=== PATIENT | male | born 1955 | race Caucasian/White ===

== ENCOUNTER 2021-03-16 13:44 | Outpatient (CLI) | payer MEDICARE, SELFPAY ==
--- NOTE | 2021-03-16 13:54 | XRR_ITS ---
PROCEDURE INFORMATION: Exam: XR Chest Exam date and time: 03/16/2021 1:54 PM Age: 65 years old Clinical indication: Wheezing TECHNIQUE: Imaging protocol: XR of the chest. Views: 2 views. COMPARISON: No relevant prior studies available. FINDINGS: Lungs: Unremarkable. No consolidation. Pleural spaces: Unremarkable. No pleural effusion. No pneumothorax. Heart/Mediastinum: Unremarkable. No cardiomegaly. Bones/joints: Unremarkable. XR/XR chest 2V* [id number] IMPRESSION: No acute findings.
== END 2021-03-16 13:45 | disposition home or self-care (01) ==
PROVIDERS: Visit Provider Clinical Nurse Specialist Adult Health
DX: R06.2 Wheezing (principal)
CPT/HCPCS: 71046

== ENCOUNTER → 2021-05-28 10:36 | Outpatient (BNVA) | payer MEDICARE, SELFPAY | PROVIDERS: Visit Provider Clinical Nurse Specialist Adult Health | DX: Z01.818 Encounter for other preprocedural examination (principal); Z20.822 Contact with and (suspected) exposure to COVID-19 | CPT/HCPCS: 87635 ==

== ENCOUNTER 2021-06-03 10:21 | Outpatient (CLI) | payer MEDICARE, SELFPAY ==
--- NOTE | 2021-06-03 13:27 | PFTS_ITS ---
Date of Study:06/03/21 Date of Dictation:01/2022 MECHANICS: Postbronchodilator forced vital capacity (FVC) is normal. Postbronchodilator forced expiratory volume in one second (FEV1) is normal FEV1/FVC is reduced. There is significant response to bronchodilators. FLOW VOLUME LOOP: Sloping of expiratory limb suggestive of airway obstruction. LUNG VOLUMES: Total lung capacity (TLC) is normal. Residual volume (RV) is increased suggestive of moderate air trapping . DIFFUSING CAPACITY FOR CARBON MONOXIDE: Normal . INTERPRETATION: The postbronchodilator spirometry is consistent with mild obstruction.? There is significant response to bronchodilators.? Lung volumes also suggestive of moderate air trapping.? Gas transfer is normal.? Constellation of findings suggestive of mild obstructive airway disease with normal gas transfer likely asthma. Correlate clinically. MTDD
== END 2021-06-03 10:22 | disposition home or self-care (01) ==
LOC: RT 10:22
PROVIDERS: Visit Provider Clinical Nurse Specialist Adult Health
DX: J42 Unspecified chronic bronchitis (principal)
CPT/HCPCS: 94060; 94726; 94729; J7611

== ENCOUNTER 2022-09-06 12:07 | Outpatient (CLI) | payer MEDICARE, SELFPAY ==
--- NOTE | 2022-09-06 12:22 | XR_ITS ---
WS: [id number] XR hip LT 2-3V wo/w pel* [id number] REASON FOR EXAM: left hip pain FINDINGS: No fracture or focal bone lesion. Severe narrowing of the the joint space, near [id number], with significant subchondral sclerosis an d osteophytosis of the acetabulum and the femoral head. Probable loose body within the joint capsule. XR/XR hip LT 2-3V wo/w pel* [id number] IMPRESSION: Severe osteoarthritis of the left hip as above.
== END 2022-09-06 12:08 | disposition home or self-care (01) ==
PROVIDERS: PCP Clinical Nurse Specialist Adult Health; Visit Provider Clinical Nurse Specialist Adult Health
DX: M16.12 Unilateral primary osteoarthritis, left hip (principal)
CPT/HCPCS: 73502

== ENCOUNTER → 2023-06-23 10:21 | Outpatient (BNVA) | payer MEDICARE, SELFPAY | PROVIDERS: PCP Clinical Nurse Specialist Adult Health; Visit Provider Clinical Nurse Specialist Adult Health | DX: I10 Essential (primary) hypertension (principal) | CPT/HCPCS: 80053; 80061; 83036; 85025 ==

== ENCOUNTER → 2023-08-25 10:25 | Outpatient (BNVA) | payer MEDICARE, SELFPAY | PROVIDERS: PCP Clinical Nurse Specialist Adult Health; Referring Provider Clinical Nurse Specialist Adult Health; Visit Provider Student in an Organized Health Care Education/Training Program | DX: M16.12 Unilateral primary osteoarthritis, left hip (principal) | CPT/HCPCS: 73502; 99204 ==

== ENCOUNTER 2023-09-13 12:30 | Outpatient (CLI) | payer MEDICARE, SELFPAY ==
--- NOTE | 2023-09-13 12:30 | CT_ITS ---
WS: [id number] CT LEFT hip, noncontrast HISTORY: LEFT TOTAL HIP ARTHROPLASTY WITH CAMRON TECHNIQUE: Protocol for CAMRON total knee replacement has been obtained. This includes axial imaging th rough the Pelvis and knees. DLP: 894.53 mGy COMPARISON: Radiograph 08/25/2023 Pelvis: RIGHT hip arthroplasty. Severe joint space narrowing with sclerosis and osteophytosis at the LEFT hip. No bony destruction. Bilateral knees. No significant joint space narrowing. No bone destruction. CT/CT hip LT [facility] [id number] IMPRESSION: CT imaging provided for CAMRON robotic LEFT hip replacement.
== END 2023-09-13 12:31 | disposition home or self-care (01) ==
LOC: RAD 12:30
PROVIDERS: PCP Clinical Nurse Specialist Adult Health; Visit Provider Student in an Organized Health Care Education/Training Program
DX: M16.12 Unilateral primary osteoarthritis, left hip (principal); M25.852 Other specified joint disorders, left hip; M25.752 Osteophyte, left hip; Z98.890 Other specified postprocedural states
CPT/HCPCS: 73700; 80053; 81003; 85025; 93005

== ENCOUNTER 2023-09-26 17:02 | Observation (INO) | payer MEDICARE, SELFPAY ==
[2023-09-26] VITALS (14 sets, daily range): BP systolic 108–164; BP diastolic 55–93; PULSE 57–85; RESP 16–18; TEMP 36.2–36.8; O2SAT 94–99; BMI 30.8; BMI 30.5
[2023-09-26] MEDS: acetaminophen 1,000 MG/100 ML PIGGYBACK 400 MG IV ×2 (12:12→19:50)
[2023-09-26] MEDS: ketorolac 30 mg/mL INJ IVP (12:13)
[2023-09-26] MEDS: lactated ringers 500 ML IV (12:13)
[2023-09-26] MEDS: scopolamine 1.5 Patch 1 PATCH TRANSDERMA (12:20)
[2023-09-26] MEDS: sodium chloride 0.9% 1,000 ML 30 ML IV (12:59)
[2023-09-26 13:01] LABS: Basophils # 0.1 10^3/uL (0.0-0.1); Basophils % 0.7 %; Eosinophils # 0.1 10^3/uL (0.0-0.8); Eosinophils % 0.7 %; Hematocrit 44.8 % (37-53); Lymphocytes # 1.5 10^3/uL (0.8-4.8); Lymphocytes % 21.8 %; Mean Corpuscular HGB Conc 35.3 g/dL (30-55); Mean Corpuscular Hemoglobin 33.3 pg (27-33); Mean Corpuscular Volume 94.5 fl (82-101); Mean Platelet Volume 10.5 fL (7.4-10.4); Monocytes # 0.7 10^3/uL (0.2-0.9); Monocytes % 9.9 %; Neutrophils # 4.72 10^3/uL (1.8-7.7); Neutrophils % 66.6 %; Nucleated Red Blood Cells % 0 %; Platelet Count 194 10^3/cmm (157-399); Red Blood Count 4.74 10^6/uL (3.85-5.65); Red Cell Distribution Width 11.9 % (12.1-15.1); White Blood Count 7.08 10^3/uL (3.29-11.43)
--- NOTE | 2023-09-26 13:11 | P.HP_ITS ---
Same Day Surgery H&P Indication for Procedure/HPI DATE OF PROCEDURE: September 26, 2023 CHIEF COMPLAINT/INDICATIONFOR SURGICAL PROCEDURE: Left hip degenerative joint disease PREOP DIAGNOSIS: Left hip degenerative joint disease PLANNED PROCEDURE: Operation Date: 09/26/23 12:45 Proposed Procedures p Freedom Robot Total Hip Arthroplasty posterior approach(Left) - Kiko Ovalle DO Medications/Allergies* Allergies/Adverse Reactions Allergy/AdvReac Type Severity Reaction Status Date / Time morphine AdvReac Unknown Ineffective Verified 09/23/23 09:13 for pain Pertinent History/Comorbid Conditions* Medical History (Updated 06/23/23 @ 13:43 by Rudi Lozano NP) Osteoarthritis of left hip Obesity (BMI 30.0-34.9) Generalized anxiety disorder Anal fissure Left hip pain Essential (primary) hypertension Chronic bronchitis Surgical History (Updated 12/28/21 @ 11:18 by Rudi Lozano NP) Hx of hemorrhoidectomy Hx of tonsillectomy History of right hip replacement H/O arthroscopic knee surgery Family History (Updated 12/28/21 @ 11:19 by Rudi Lozano NP) Diabetes Mother Sister Fibromyalgia Sister Hypoglycemic disorder Mother Cancer Father smoker, lung cancer Social History Smoking and tobacco/nicotine status: never used tobacco/nicotine Alcohol intake: former Substance/Drug Use: never Marital status: Current occupation: self employed Pertinent Exam Findings alert, oriented x 3, operative site marked and procedure specific exam findings Please refer to detailed orthopedic examination on 08/25/2023 listed below: Left hip examination: Examination left hip no significant lumbar tenderness to palpation patient has tenderness palpation over the groin and trochanteric bursa of the left hip severely diminished range of motion with only roughly 5 degrees internal rota tion with significant pain as well as severe pain with hip flexion internal rotation at the groin and lateral aspect of the hip. Decreased external rotation of the hip and perform straight leg raise no significant pain Recommendations Surgery/Procedure today Other Plans: Plan to proceed with left total hip arthroplasty Freedom robotic assisted posterior approach. Patient's clear the preoperative clearance process. No change in his health since last office visit.Patient understands and Zetts procedure risk benefits complication alternatives of surgery and through shared decision make elects proceed with surgical intervention.Patient elects proceed with surgical intervention all questions been answered at this time. Coding Level of Care Code Acute Code for [facility] Katelyn
[2023-09-26 13:12] LABS: Blood Urea Nitrogen 14 mg/dL (8-23); Calcium 9.5 mg/dL (8.5-10.5); Carbon Dioxide 28 mmol/L (22-29); Chloride 98 mmol/L (98-107); Creatinine Clr Calc Pharmacy 92.0098; Glomerular Filtration Rate 83.9 mL/min (90-130); Glucose 107 mg/dL (65-115); Osmolality Calculated 287 mOsm/kg (285-295); Sodium 138 mmol/L (136-145)
[2023-09-26 13:13] LABS: Anion Gap 15.9 (5-19); Potassium 3.9 mmol/L (3.5-5.1)
[2023-09-26] MEDS: ceFAZolin 2,000 MG in sodium chloride 0.9% (plus) 50 ML 100 MG IV ×2 (13:31→21:33)
--- NOTE | 2023-09-26 13:42 | ANES.PREANE2 ---
Pre-Anesthetic Assessment Height/Weight: Height 1.78 m Weight 97.522 kg Temp Pulse Resp BP Pulse Ox O2 Del Method 98.1 F 60 18 164/84 96 Room Air 09/26/23 11:44 09/26/23 11:44 09/26/23 11:44 09/26/23 11:44 09/26/23 11:44 09/26/23 11:53 Preop Diagnosis: Left hip degenerative joint disease Operation Date: 09/26/23 12:45 Proposed Procedures p Freedom Robot Total Hip Arthroplasty posterior approach(Left) - Kiko Ovalle, Familial anesthetic complications: none Was Beta Mercedez taken within 24 hours: N/A Was Clonidine taken within 24 hours: N/A Last intake: Intake Last Liquid Date 09/26/23 Last Liquid Time 07:00 Last Solid Date 09/25/23 Last Solid Time 10:00 Social No alcohol and No tobacco Exam alert, oriented x 3, clear to auscultation bilaterally and regular rate & rhythm Airway Submandibular: within normal limits Cervical ROM: within normal limits Mallampati: Class II Dentition: chipped Pulmonary Asthma CV/HEM Hypertension Metabolic Morbid Obesity Musc/[facility] Osteoarthritis/DJD Neuropsych Anxiety Anesthetic Plan ASA status: 3 Anesthesia: Regional (specify below) (SAB) Medications/Allergies Home Medications Medication Instructions Recorded Confirmed Last Taken Type inhalational spacing device #10 ea 12/28/21 08/25/23 Unknown Rx (Aerochamber MV spacer) albuterol sulfate 90 mcg/actuation 2 inh inhalation Q6H PRN 02/24/22 09/23/23 Unknown Rx aerosol inhaler bronchospasm #8.5 grams meloxicam 15 mg tablet 15 mg PO DAILY #90 tabs 12/13/22 09/23/23 09/15/23 Rx alprazolam 0.25 mg tablet 0.25 mg PO DAILY PRN anxiety #20 04/27/23 09/26/23 09/26/23 Rx tabs budesonide-formoterol HFA 80 See Rx Instructions .Route 04/27/23 09/23/23 09/26/23 Rx mcg-4.5 mcg/actuation aerosol .COMPLEX #10.2 grams inhaler (Symbicort) hydrochlorothiazide 25 mg tablet 25 mg PO DAILY #90 tabs 06/23/23 09/23/23 09/25/23 Rx losartan 100 mg tablet 100 mg PO DAILY #30 tabs 08/29/23 09/23/23 09/25/23 Rx Allergies Allergy/AdvReac Type Severity Reaction Status Date / Time morphine AdvReac Unknown Ineffective Verified 09/23/23 09:13 for pain Current Medications Generic Name Dose Route Start Last Admin Trade Name Sudhir PRN Reason Stop Dose Admin Sodium Chloride 1,000 mls @ 30 mls/hr 09/26/23 11:30 09/26/23 12:59 Sodium Chloride 0.9% IV 09/27/23 11:29 30 mls/hr .Q24H STEFANI Administration PFSH Anesthesia Medical History Osteoarthritis of left hip Obesity (BMI 30.0-34.9) Generalized anxiety disorder Anal fissure Left hip pain Essential (primary) hypertension Chronic bronchitis Surgical History Hx of hemorrhoidectomy Hx of tonsillectomy History of right hip replacement H/O arthroscopic knee surgery Family History Father Cancer smoker, lung cancer Mother Hypoglycemic disorder Diabetes Sister Diabetes Fibromyalgia Social History Smoking and tobacco/nicotine status: never used tobacco/nicotine Alcohol intake: former Substance/Drug Use: never Marital status: Current occupation: self employed Data Anesthesia 09/26/23 12:30 09/26/23 12:30 Short CBC 09/26/23 Range/Units 12:30 WBC 7.08 (3.29-11.43) 10^3/uL Hgb 15.80 (11.27-16.99) g/dL Hct 44.8 (37-53) % MCV 94.5 (82-101) fl Plt Count 194 (157-399) 10^3/cmm Neut % (Auto) 66.6 % Neut # (Auto) 4.72 (1.8-7.7) 10^3/uL BMP 09/26/23 12:30 Sodium 138 Potassium 3.9 Chloride 98 Carbon Dioxide 28 BUN 14 Creatinine 0.9 Glucose 107 Calcium 9.5 Cardiac Studies: No Data to Display
[2023-09-26] MEDS: tranexamic acid 1,000 mg/10mL SDV 1000 MG IV (13:50)
[2023-09-26] MEDS: vancomycin 1,000 MG SDV 1000 MG XX (16:08)
--- NOTE | 2023-09-26 17:02 | P.BOP_ITS ---
Date of Procedure: [September 26, 2023] Surgeon: [Dr. Ovalle DO] Electric Track Switch Maintainer(s): [Luisito Ovalle PA-C] Procedure(s) performed: [Left hip total arthroplasty with Freedom robotic assist] Findings of the procedure(s): [Left hip degenerative joint disease] Estimated blood loss: [150 ml] Specimen(s) removed: [Femoral head] Post-operative diagnosis: [Left hip degenerative joint disease]
--- NOTE | 2023-09-26 17:02 | XRR_ITS ---
PROCEDURE INFORMATION: Exam: XR Left Hip Exam date and time: 09/26/2023 5:06 PM Age: 67 years old Clinical indication: Device placement; Other: Lt total hip; Prior surgery; Surgery date: Post-operative (0-2 days); Surgery type: Lt hip; Additional info: S/P L antonio TECHNIQUE: Imaging protocol: Radiologic exam of the left hip. Views: 2 or 3 views hip with pelvis when performed. COMPARISON: CT hip LT [facility] [id number] 09/13/2023 12:46 PM FINDINGS: Bones/joints: Recently placed left total hip arthroplasty in expected alignment. Right total hip arthroplasty also noted. Soft tissues: Soft tissue swelling and gas noted around the left hip. XR/XR hip LT 2-3V wo/w pel* [id number] IMPRESSION: Recently placed left total hip arthroplasty in expected alignment.
--- NOTE | 2023-09-26 17:05 | PM.PACU ---
PACU note Narrative: Patient is a 67-year-old male just underwent a left total hip arthroplasty. Pt transferred to PACU in stable condition. Dressing is dry. pt is awake and alert. Exam is limited due to residual spinal block. Unable to assess motor and sensation due to left leg due to residual block. Distal pulses are palpable toes are warm and well-perfused. Cap refill is normal and under 2 seconds. Pain is controlled. Exam: awake Disposition: admitted
[2023-09-26] MEDS: calcium carb-vit d 600mg/400unit 1 Tablet 1 EACH PO (17:57)
[2023-09-26] MEDS: iron polysaccharide complex 150 mg Capsule PO (17:57)
[2023-09-26] MEDS: lactated ringers 1,000 ML 100 ML IV (17:57)
[2023-09-26] MEDS: sennosides-docusate Tablet 2 TAB PO (17:57)
[2023-09-26] MEDS: HYDROmorphone 1 mg/mL INJ 1 mL 0.5 MG IVP ×2 (17:57→22:18)
--- NOTE | 2023-09-26 17:57 | ANE.PACU2 ---
Inpatient post-anesthesia follow up: Airway intact: Yes Vital signs: Temperature 97.2 F Pulse Rate 58 Respiratory Rate 18 Blood Pressure 119/55 Pulse Oximetry 95 Oxygen Delivery Me thod Room Air Oxygen Flow Rate 10 Fraction of Inspir ed Oxygen Hydration adequate: Yes Nausea and vomiting: No Pain level: 2 Mental status: Baseline
--- NOTE | 2023-09-26 18:00 | PM.OP ---
Operative Report Date of procedure: September 26, 2023 Surgeon: Kiko Ovalle DO Death Surveys Coder: Luisito Ovalle PA-C: PA was necessary for assistance in this case with leg positioning, assistance with reduction, retraction and protection of neurovascular structures as well as assistance in implantation wound closure and dressing application. Procedure: Preop Diagnosis?Left hip degenerative joint disease Post-op diagnosis: Left hip degenerative joint disease Procedure done: Left total hip arthroplasty?robotic assisted?Freedom?posterior?approach Implants: Benito total hip arthroplasty implants 56 mm cluster hole acetabular shell 6.5 mm x (20 & 30mm) acetabular screw Alpha code F MDM cementless metal liner Benito insignia high offset femoral stem size #6 MDM +4mm head Surgeon: Kiko Ovalle DO Estimated blood loss: 150 mL IV fluids: 1200 mL Urine output: 200 mL Complications: None Condition: stable Disposition: floor Brief History: Patient's been seen and worked up by myself in the outpatient setting and findings consistent with Left hip degenerative joint disease. He has failed conservative treatment this is causing him severe pain and inability to perform his job from a daily aspect. Patient has had total hip replacement done on the right side and done well with this he like to pursue surgical intervention. We talked about his treatment options as far as nonoperative and operative intervention. he ultimately through shared decision-making would like to proceed with a Left total hip arthroplasty. we detailed out his risk benefits complications alternatives to surgical and nonsurgical treatment options. Understanding his risk for surgery he elects to proceed with Left total hip arthroplasty robotic assisted?Freedom?utilizing a?posterior?approach. All questions answered. He elects proceed with surgery today. Procedure: Patient was seen evaluate in preoperative holding area.? Consent was reviewed and signed with patient.? Correct extremity was then marked.? Patient seen evaluate by anesthesia department once cleared for surgery pt was taken back to the operative suite.? Patient underwent anesthesia per the anesthesia department.? This point time pt was then placed on the operative suite and table.? Pt was then placed in lateral decubitus patient worked with the Left hip up.? Patient was secured in the lateral decubitus position with pegboard. All bony prominences well-padded he was properly secured to the bed.? At this point time the Left lower extremity was then prepped and draped in standard orthopedic fashion with care not to drape out the iliac wing for pelvic array placement.? Final timeout performed.? Patient received appropriate preoperative antibiotics. Started off with establishment of my pelvic array pins.? A small longitudinal incision was made directly over the iliac wing.? Sharp scalpel excision through skin and subcutaneous tissue directly onto bone.? Next I then loaded my pelvic pin.? This was then drilled through the iliac wing corridor with excellent fixation.? Next I then loaded the guide which was placed directly onto bone and then subsequently placed 2 more pins to secure fixation.? Next the pelvic array was then sent had excellent visualization with the?[employer]?robot and was secured. EKG pad was placed on the distal lateral aspect of the femur and sterile aseptic technique and use as my distal reference point. Next I proceeded with my standard?posterior?approach.? Sharp scalpel through skin and subcutaneous tissue this was centered over the greater trochanter.? I then utilized a Rogers elevator over the gluteus padmini fascia.? Next the fascia was then split longitudinally with bipolar electrocautery.? Next a Charnley retractor was then placed.? All bone was then placed into the abductors.? A standard full-thickness release of the piriformis and the short external rotators along with the capsule to grade 1 full thick sleeve for later repair was then placed straight down to the lesser trochanter.? Lesser trochanter was then subsequently identified.? Prior to dislocating the hip we then placed our greater trochanter femur checkpoint.? We marked our appropriate checkpoint for referencing on pelvic array.? At this point in time we then established both of our checkpoints as well as referencing for leg lengths I utilized the EKG pad as my distal reference point. The legs were marked and traced to have appropriate position on the drapes to allow for accurate reading.? Preoperative leg lengths set. Once this was then established I then proceeded with dislocation of the femoral head.? At this point Hohmann's were then placed superiorly and inferiorly along the femoral neck..? The sciatic nerve was protected throughout this case.? At this point time I then utilized the?[employer]?robot and referencing point to reference different aspects along the femoral head and neck for my appropriate neck length.? These were referenced on the inferior mid substance as well as up into the superior shoulder of the femoral neck.? This marked my oscillating saw was used to make my femoral neck cut.? Femoral head was then removed. Next the leg was placed in appropriate position and my anterior and?posterior?acetabular retractors then placed.? Next I excised the labrum and then remove the pulvinar.? I did do a small release of the inferior capsule which was severely taut to allow for easier placement of my reamers as well as reduction.? Acetabulum was thoroughly irrigated. At this point in time keeping my retractors in place I subsequently loaded up the?[employer]?robot for my acetabular reaming.?? Next I then set my 56 reamer under the?[employer]?robot and subsequently held this with appropriate preplanned preop planned version of 40 degrees of abduction angle as well as 20 degrees of anteversion.? This preoperative plan was then subsequently made to accommodate for ranges of motion of impingement that was assessed preoperatively utilizing the?[employer]?robotic software technology.I then subsequently reamed this to the appropriate depth with 56mm reamer.? We opened up the acetabular shell clusterhole of the 56 mm Benito this was then loaded onto my impacting system and then I subsequently impacted this to appropriate depth.? This was then removed from the robot and I used the?Freedom?probe at the center to confirm on the CT scan that this was down on bone which it was.? Next I then drilled and placed 2 acetabular screws with excellent fixation these were drilled and measured to be 20 & 30mm this was in the?posterior?superior aspect of the acetabulum had excellent bite and fixation.? The cup was solid and had excellent press-fit fixation. next, opened the alpha code F MDM cementless liner then subsequently placed in appropriate position and impacted into place.? I then placed a sponge into the acetabulum to protect the polyethylene while my femur preparation was performed.? At this point time I then utilized a small rongeur to clear off the shoulder of the femoral neck to clear out the soft tissue envelope for my box osteotome.? Next box osteotome was used a canal finder was placed as well as a lateral lysing rattail rasp.? Once I was appropriately lateralized I then sequentially broached up to a size 6 insigna femoral stem.? This was impacted to appropriate depth and flushed with my femoral neck cut.? This point I loaded a standard size neck and subsequently reduced the hip.? At this point in time the hip was taken through range of motion before evaluating with the robot on leg lengths.? Patient appeared to have room to increase on leg lengths clinically.? The hip was taken through range of motion and had excellent stability with hip flexion and internal rotation with no evidence of instability had an slightly increased shuck.? This point time utilized the?Freedom?probe from our femur checkpoint down to her distal checkpoint. Satisfied with this trial implants, at this point I dislocated the hip and then called for my final implants with excellent stability in all planes.? Opened up a size 6 femoral Insignia stem.? My trials were then removed and then subsequently impacted my stem to the same level.? This point in time I trialed up to a +4 mm neck length which helped match withDavid?robotic assistance had appropriate leg lengths comparative to the contralateral hip and this was confirmed clinically as well as had excellent stability I felt as though this was best combination with leg lengths being equal as well as with stability and elected for the final +4 mm MDM femoral head. Final MDM femoral head component was then opened and the trunnion was dried and this was impacted with excellent fixation and the hip was subsequently reduced.? We measured our final leg lengths which were appropriate patient had excellent stability in all ranges of motion.? This point time a robotic pins and checkpoints were removed.? I remove the femur checkpoint as well as my pelvic array and iliac wing pins.? Appropriate counts were then made.? This point time thoroughly irrigated the wound bed with pulse lavage.? Vancomycin powder was then sprinkled into the wound bed.? I then performed a standard capsular and external rotator repair utilizing #5 Ethibond and this was tied and repaired through bone tunnels hip, sciatic nerve was protected throughout this portion of the case. Was then kept in abduction external rotation and subsequently closed the fascial layer with Ethibond suture as well as running strata fix suture.? I then closed the deep subcutaneous layer as well as superficial subcutaneous layer with running strata fix suture as well as 3-0strata fix for skin.? Prineo glue dressing was then placed over the skin.? I then irrigated the pelvic array pin site.? There is were then closed with interrupted 0, 2-0 Vicryl suture and Monocryl as well as Prineo glue for the skin.? Incisions were then covered with aura and Silverlon dressing.? Patient was awakened from anesthesia and taken to PACU in stable condition Disposition: Patient taken to PACU in stable condition.? Patient will receive appropriate discharge instructions as well as DVT prophylaxis and pain medication.? Patient will be admitted to the floor for observation should be evaluated by the internal medicine team for medical management.? Patient received appropriate DVT prophylaxis as well as pain medication PT/OT weightbearing as tolerated Left lower extremity with?posterior?hip precautions, Postoperative Abx and TXA.? We will follow-up with patient in the office in 2 weeks.? Patient understands agrees with current plan.? All questions answered.
--- NOTE | 2023-09-26 18:06 | P.CONIM_ITS ---
Providers/Reason For Consult 2 Consulting Physician/Specialty*: Orthopedic Reason for Consult*: Medical management Attending Physician: Kiko Ovalle DO Primary Care Provider: Rudi Lozano History of Present Illness History of Present Illness Francis Sherman is a 67 year old male with a past medical history of obesity, asthma, hypertension, who presents [facility] status post status post left hip total arthroplasty, patient was seen in postop recovery, he is alert oriented x 3, following all commands, denies any cardiovascular history, denies a history of COPD, history of smoking no history of strokes no history of diabetes, Review of Systems 2 Const: Denies: fever(s) Card: Denies: chest pain Resp: Denies: dyspnea GI: Denies: abdominal pain Medications/Allergies Home Medications Medication Instructions Recorded Confirmed Last Taken Type inhalational spacing device #10 ea 12/28/21 08/25/23 Unknown Rx (Aerochamber MV spacer) albuterol sulfate 90 mcg/actuation 2 inh inhalation Q6H PRN 02/24/22 09/23/23 Unknown Rx aerosol inhaler bronchospasm #8.5 grams meloxicam 15 mg tablet 15 mg PO DAILY #90 tabs 12/13/22 09/23/23 09/15/23 Rx alprazolam 0.25 mg tablet 0.25 mg PO DAILY PRN anxiety #20 04/27/23 09/26/23 09/26/23 Rx tabs budesonide-formoterol HFA 80 See Rx Instructions .Route 04/27/23 09/23/23 09/26/23 Rx mcg-4.5 mcg/actuation aerosol .COMPLEX #10.2 grams inhaler (Symbicort) hydrochlorothiazide 25 mg tablet 25 mg PO DAILY #90 tabs 06/23/23 09/23/23 09/25/23 Rx losartan 100 mg tablet 100 mg PO DAILY #30 tabs 08/29/23 09/23/23 09/25/23 Rx Allergies Allergy/AdvReac Type Severity Reaction Status Date / Time morphine AdvReac Unknown Ineffective Verified 09/23/23 09:13 for pain Current Medications Generic Name Dose Route Start Last Admin Trade Name Freq PRN Reason Stop Dose Admin Calcium Carbonate 1 each 09/26/23 18:00 09/26/23 17:57 Calcium Carb-Vit D 600mg/400unit 1 Tablet PO 1 each BID STEFANI Administration Hydromorphone HCl 0.5 mg 09/26/23 17:42 09/26/23 17:57 Hydromorphone 1 Mg/Ml Inj 1 Ml IVP 0.5 mg Q4H PRN Administration BREAKTHROUGH PAIN Lactated Ringer's 1,000 mls @ 100 mls/hr 09/26/23 17:42 09/26/23 17:57 Lactated Ringers IV 100 mls/hr .Q10H STEFANI Administration Polysaccharide Iron Complex 150 mg 09/26/23 18:00 09/26/23 17:57 Iron Polysaccharide Complex 150 Mg Capsule PO 150 mg BIDWM STEFANI Administration Senna/Docusate Sodium 2 tab 09/26/23 18:00 09/26/23 17:57 Sennosides-Docusate Tablet PO 2 tab BID STEFANI Administration PFSH Acute 2 PFSH: Medical History Osteoarthritis of left hip Obesity (BMI 30.0-34.9) Generalized anxiety disorder Anal fissure Left hip pain Essential (primary) hypertension Chronic bronchitis Surgical History Hx of hemorrhoidectomy Hx of tonsillectomy History of right hip replacement H/O arthroscopic knee surgery Family History Father Cancer smoker, lung cancer Mother Hypoglycemic disorder Diabetes Sister Diabetes Fibromyalgia Social History Smoking and tobacco/nicotine status: never used tobacco/nicotine Alcohol intake: former Substance/Drug Use: never Marital status: Current occupation: self employed Vitals/I&O/Wt Last Vital Signs Temp 97.2 F L 09/26/23 17:15 Pulse 58 L 09/26/23 17:15 Resp 18 09/26/23 17:57 BP 119/55 09/26/23 17:15 Pulse Ox 95 09/26/23 17:15 O2 Del Method Room Air 09/26/23 17:15 O2 Flow Rate 10 09/26/23 16:54 09/26/23 09/26/23 09/26/23 06:59 14:59 22:59 Intake Total 150 / 150 1200 / 1350 Output Total 350 / 350 Balance 150 / 150 850 / 1000 Weight last 48 hrs Weight 97.522 kg Physical Exam 2 Const: COMMON NORMALS: no acute distress and patient oriented x3 HENMT: COMMON NORMALS: normocephalic HEAD & SCALP: normocephalic Resp: COMMON NORMALS: normal respiratory effort, No retractions, No use of accessory muscles and clear to auscultation bilaterally AUSCULTATION: clear to auscultation bilaterally Cardio: COMMON NORMALS: regular rate, regular rhythm, S1 normal heart sound present and S2 normal heart sound present RATE: regular rate RHYTHM: r egular rhythm HEART SOUNDS: S1 normal heart sound present and S2 normal heart sound present GI: COMMON NORMALS: Normal to inspection, nondistended, normoactive bowel sounds present and non-tender Extremity: NARRATIVE EXTREMITY EXAM: Lower extremity wrapped Neuro: COMMON NORMALS: patient oriented x3 Psych: COMMON NORMALS: mental status grossly normal Urinary Catheter Management: Crockett: Cath Placed During This Visit: yes Urinary Catheter Date of Insertion: 09/26/23 Urinary Catheter Time of Insertion: 13:50 Data 09/26/23 12:30 09/26/23 12:30 A&P Assessment and plan (1) Generalized anxiety disorder: (2) Essential (primary) hypertension: (3) Obesity (BMI 30.0-34.9): (4) Left hip pain: (5) Asthma: Plan Left total hip arthroplasty ? Eliquis for DVT prophylaxis ? Pain control as per orthopedic service ? Currently on IV fluids Hypertension, hold blood pressure medications Anxiety, resume alprazolam Asthma, resume home medications, albuterol, Symbicort ? Eliquis for DVT prophylaxis Consult Attestations 2 Medical Necessity Statement: Patient requires hospitalization, status post left hip surgery Diagnoses Generalized anxiety disorder F41.1 Essential (primary) hypertension I10 Obesity (BMI 30.0-34.9) E66.9 Left hip pain M25.552 Asthma J45.909
[2023-09-26] MEDS: mupirocin oint 22 gm 1 APPLIC NASAL (18:25)
[2023-09-26] MEDS: oxyCODONE 5 mg IR Tab/Cap PO ×2 (18:25→22:22)
--- NOTE | 2023-09-26 18:58 | PC.NURSE ---
DR. FRANCO CALLED AND GAVE TELEPHONE ORDERS TO ADD ROBAXIB PO 750 MG TID FOR MUSCLE SPASMS. HE ALSO WANTED TO KNOW THAT THE PTS PRN OXY IR 5 MG WAS ORDERED 1-2 TABLETS. NEW ORDERS PUT IN AND OXY VERIFIED.
[2023-09-26] MEDS: tranexamic acid 1,000 MG/100 ML PREMIX 600 MG IV (19:34)
[2023-09-26] MEDS: TRAMadol 50 mg Tablet PO (19:35)
[2023-09-26] MEDS: methocarbamol 750 mg Tablet PO (19:40)
[2023-09-26] MEDS: ondansetron 2 mg/ML SDV 2 mL 4 MG IVP (20:04)
[2023-09-26] MEDS: budesonide 0.5 mg/2 mL Neb INHALATION (21:12)
[2023-09-26] MEDS: albuterol 2.5 mg/3 mL Neb INHALATION (21:12)
[2023-09-26] MEDS: ketorolac 30 mg/mL INJ 15 MG IVP (21:33)
[2023-09-26] MEDS: chlorhexidine gluconate 0.12% Btl 473 mL 30 ML MUCOUS MEM (21:34)
[2023-09-27] VITALS (9 sets, daily range): BP systolic 143–164; BP diastolic 70–80; PULSE 61–78; RESP 16–19; TEMP 36.6–36.9; O2SAT 93–96
[2023-09-27] MEDS: oxyCODONE 5 mg IR Tab/Cap PO ×2 (03:06→08:29)
[2023-09-27] MEDS: acetaminophen 1,000 MG/100 ML PIGGYBACK 400 MG IV (03:47)
[2023-09-27] MEDS: ketorolac 30 mg/mL INJ 15 MG IVP (03:47)
[2023-09-27] MEDS: TRAMadol 50 mg Tablet PO (03:47)
[2023-09-27] MEDS: lactated ringers 1,000 ML 100 ML IV (03:48)
[2023-09-27] MEDS: methocarbamol 750 mg Tablet PO ×2 (03:52→11:37)
[2023-09-27] MEDS: ceFAZolin 2,000 MG in sodium chloride 0.9% (plus) 50 ML 100 MG IV (04:55)
[2023-09-27 06:10] LABS: Basophils % 0.3 %; Eosinophils % 0.1 %; Hematocrit 36.5 % (37-53); Lymphocytes # 0.9 10^3/uL (0.8-4.8); Lymphocytes % 9.1 %; Mean Corpuscular HGB Conc 34.8 g/dL (30-55); Mean Corpuscular Hemoglobin 33.8 pg (27-33); Mean Corpuscular Volume 97.1 fl (82-101); Mean Platelet Volume 10.5 fL (7.4-10.4); Monocytes # 0.9 10^3/uL (0.2-0.9); Monocytes % 8.9 %; Neutrophils # 8.37 10^3/uL (1.8-7.7); Neutrophils % 81.2 %; Nucleated Red Blood Cells % 0 %; Platelet Count 167 10^3/cmm (157-399); Red Blood Count 3.76 10^6/uL (3.85-5.65); Red Cell Distribution Width 12.2 % (12.1-15.1); White Blood Count 10.31 10^3/uL (3.29-11.43)
[2023-09-27 06:29] LABS: Anion Gap 12.9 (5-19); Blood Urea Nitrogen 15 mg/dL (8-23); Calcium 8.7 mg/dL (8.5-10.5); Carbon Dioxide 26 mmol/L (22-29); Chloride 103 mmol/L (98-107); Creatinine Clr Calc Pharmacy 92.5342; Glomerular Filtration Rate 83.9 mL/min (90-130); Glucose 127 mg/dL (65-115); Osmolality Calculated 288 mOsm/kg (285-295); Potassium 3.9 mmol/L (3.5-5.1); Sodium 138 mmol/L (136-145)
[2023-09-27] MEDS: albuterol 2.5 mg/3 mL Neb INHALATION ×2 (07:52→11:28)
[2023-09-27] MEDS: budesonide 0.5 mg/2 mL Neb INHALATION (07:52)
[2023-09-27] MEDS: multivitamin therapeutic Tablet 1 TAB PO (08:29)
[2023-09-27] MEDS: calcium carb-vit d 600mg/400unit 1 Tablet 1 EACH PO (08:29)
[2023-09-27] MEDS: ALPRAZolam 0.5 mg Tablet 0.25 MG PO (08:30)
[2023-09-27] MEDS: apixaban 5 mg Tablet 2.5 MG PO (08:30)
[2023-09-27] MEDS: sennosides-docusate Tablet 2 TAB PO (08:30)
[2023-09-27] MEDS: iron polysaccharide complex 150 mg Capsule PO (08:30)
[2023-09-27] MEDS: mupirocin oint 22 gm 1 APPLIC NASAL (08:30)
[2023-09-27] MEDS: chlorhexidine gluconate 0.12% Btl 473 mL 30 ML MUCOUS MEM (08:31)
--- NOTE | 2023-09-27 09:13 | PC.CHAP ---
Pastoral Care Encounter/Spiritual Assessment Type of Contact [] Declined lapeler visit [] Patient/Family/Request visit [] Outpatient visit [] Follow-up visit [] Physician referral [] Code/Alert [] Routine visit [] Staff referral [] Actively dying [] Patient sleeping [] Family support [] [] Out of room [] Palliative care [] [x] Receiving care in room [] Pre-surgical visit [] Trauma [] Long length of stay [] ICU visit [] Other: Relational/Emotional Strength [] Patient feels connected with others/family/visitors/staff [] Distress [] Loneliness/isolation [] Abandonment Spirituality of Patient [] Person of Kina [] Attends Catholic of their Kina [] Believes in Prayer [] Reads Bible or Catholic materials [] There are Spiritual issues to be addressed Asthma Educator Interventions [] Prayer [] Active listening [] Non-anxious presence [] Spiritual/emotional support [] Crisis/trauma care [] Spiritual counseling [] Bereavement support [] Provided bereavement packet [] Provided Bible/devotional materials [] Provided toy/stuffed animal, coloring book to patient or family member [] Provided Communion [] Anointing/[place] [] Salvation [] Completed spiritual assessment [] Other: Impact on Illness or Injury [] Angry [] Fearful [] Anxious [] Often cries [] Exhaustion [] Unable to work [] Unable to attend hoahaoism [] Unable to walk/stand [] Unable to read [] Unable to drive [] Unable to eat/drink [] Unable to sleep [] Unable to be with family [] Patient intubated [] Other: Summary Time spent with patient
--- NOTE | 2023-09-27 11:19 | P.PN_ITS ---
Subjective 2 Subjective: Patient was seen this morning, continues to complain of left hip pain, he has just worked with physical therapy he tells that the pain is 8 out of 10, he is worried about his elevated blood pressures, we discussed resuming his blood pressure medications, denies any chest pain, no palpitations Vitals/I&O/Wt Last Vital Signs Temp 97.9 F 09/27/23 08:47 Pulse 65 09/27/23 08:47 Resp 19 H 09/27/23 08:47 BP 148/72 09/27/23 08:47 Pulse Ox 95 09/27/23 08:47 O2 Del Method Room Air 09/27/23 08:47 O2 Flow Rate 10 09/26/23 16:54 09/26/23 09/27/23 09/27/23 22:59 06:59 14:59 Intake Total 2050 / 2200 1735 / 3935 120 / 120 Output Total 650 / 650 300 / 950 Balance 1400 / 1550 1435 / 2985 120 / 120 Weight last 48 hrs Weight 98.702 kg Weight 96.615 kg Weight 97.522 kg Physical Exam 2 Const: COMMON NORMALS: no acute distress and patient oriented x3 Resp: COMMON NORMALS: normal respiratory effort, No retractions, No use of accessory muscles and clear to auscultation bilaterally AUSCULTATION: clear to auscultation bilaterally Cardio: COMMON NORMALS: regular rate, regular rhythm, S1 normal heart sound present and S2 normal heart sound present RATE: regular rate RHYTHM: r egular rhythm HEART SOUNDS: S1 normal heart sound present and S2 normal heart sound present GI: COMMON NORMALS: Normal to inspection, nondistended, normoactive bowel sounds present and non-tender Extremity: COMMON NORMALS: no pedal edema Neuro: COMMON NORMALS: patient oriented x3 Psych: COMMON NORMALS: mental status grossly normal Urinary Catheter Management: Crockett: Cath Placed During This Visit: yes, but has since been removed by the nurse Reason for Continuing Indwelling Catheter: Perioperative Use in Selected Surgeries Urinary Catheter Date of Insertion: 09/26/23 Urinary Catheter Time of Insertion: 13:50 Date Urinary Catheter Removed: 09/27/23 Time Urinary Catheter Discontinued: 10:49 Data 09/27/23 05:25 09/27/23 05:25 A&P Assessment and plan (1) Generalized anxiety disorder: (2) Essential (primary) hypertension: (3) Obesity (BMI 30.0-34.9): (4) Left hip pain: (5) Asthma: Plan Left total hip arthroplasty ? Eliquis for DVT prophylaxis ? Pain control as per orthopedic service ? Currently on IV fluids Hypertension, resume home losartan Anxiety, resume alprazolam Asthma, resume home medications, albuterol, Symbicort ? Eliquis for DVT prophylaxis Attestations 2 Medical Necessity Statement*: Patient requires hospitalization for left hip arthroplasty, blood pressure control, pain control Diagnoses Generalized anxiety disorder F41.1 Essential (primary) hypertension I10 Obesity (BMI 30.0-34.9) E66.9 Left hip pain M25.552 Asthma J45.909
[2023-09-27] MEDS: HYDROmorphone 1 mg/mL INJ 1 mL 0.5 MG IVP (11:37)
[2023-09-27] MEDS: losartan 50 mg Tablet 100 MG PO (11:37)
--- NOTE | 2023-09-27 11:54 | PM.DCS ---
Discharge Providers Date of Admission: 09/26/23 17:02 Date of Discharge: September 27, 2023 Attending Provider at Admission: Kiko Ovalle DO Attending Provider at Discharge: Kiko Ovalle DO Consults: Hospitalist?Dr. Zarate Primary Care Provider: Rudi Lozano Diagnoses at Discharge Discharge Diagnosis (1) Generalized anxiety disorder: Status: Acute (2) Essential (primary) hypertension: Status: Acute (3) Obesity (BMI 30.0-34.9): Status: Acute (4) Left hip pain: Status: Acute (5) Asthma: Status: Acute Reason for Visit Reason for Visit: M16.12, M25.444 Brief History: Status post left total hip arthroplasty?Freedom robotic assisted posterior approach Hospital Course Hospital Course Patient was brought to the hospital through the preoperative holding area with plan for left total hip arthroplasty for [left] hip dengerative joint disease. Once cleared by anesthesia for surgery subsequently was taken back to the operative suite underwent anesthesia per the anesthesia department and then underwent [left] total hip arthroplasty with Freedom robotic assistance posterior approach without any complications. Patient was then subsequently taken back to PACU in stable condition recovering well. Once recovered, patient was then subsequently admitted to the floor postoperatively. Internal medicine was consulted for medical management assistance. Patient weightbearing as tolerated to the left lower extremity, posterior hip precautions. PT/OT. Pain control. DVT prophylaxis. Postoperative antibiotics and TXA. dressing was change as needed. Internal medicine was on board and appreciate their medical management and assistance. Pt was determined on postoperative day [ 1] the patient was stable for discharge from orthopedic as well as internal medicine standpoint. Patient's labs were monitored daily. Patient will receive appropriate pain medication as well as DVT prophylaxis postoperatively. Appropriate discharge instructions as well. Patient was then discharged in stable condition. Patient will discharge home. Pt will follow-up with Orthopedics in the office in 2 weeks. Patient understands and agrees with current plan. All questions answered. Understands there is any issues or concerns and contact the office. Physical Exam Narrative: Examination left hip examination left hip dressings are on in place are clean dry and intact normal postoperative swelling appreciated to left hip patient able to tolerate gentle smooth hip range of motion with minimal pain or discomfort able to perform straight leg raise able to wiggle toes plantarflex and dorsiflex ankle sensations intact light touch distally. Distal pulses palpable compartments are soft compressible. Urinary Catheter Management: Crockett: Cath Placed During This Visit: yes, but has since been removed by the nurse Reason for Continuing Indwelling Catheter: Perioperative Use in Selected Surgeries Urinary Catheter Date of Insertion: 09/26/23 Urinary Catheter Time of Insertion: 13:50 Date Urinary Catheter Removed: 09/27/23 Time Urinary Catheter Discontinued: 10:49 Discharge Data Studies Completed and Pending Completed Studies During Hospitalization Category Date Time Status XR hip LT 2-3V wo/w pel* [id number] Routine Exams 09/26/23 17:02 Completed Pending at discharge Category Date Time Status Basic Metabolic Panel AM LABS Lab 09/28/23 04:00 Ordered Basic Metabolic Panel AM LABS Lab 09/29/23 04:00 Ordered Complete Blood Count w/Auto AM LABS Lab 09/28/23 04:00 Ordered Complete Blood Count w/Auto AM LABS Lab 09/29/23 04:00 Ordered Radiology Impressions Hip/Pelvis X-Ray 09/26/23 17:02 IMPRESSION: Recently placed left total hip arthroplasty in expected alignment. Laboratory Results WBC 10.31 10^3/uL (3.29-11.43) 09/27/23 05:25 RBC 3.76 10^6/uL (3.85-5.65) L 09/27/23 05:25 Hgb 12.70 g/dL (11.27-16.99) 09/27/23 05:25 Hct 36.5 % (37-53) L 09/27/23 05:25 MCV 97.1 fl (82-101) 09/27/23 05:25 MCH 33.8 pg (27-33) H 09/27/23 05:25 MCHC 34.8 g/dL (30-55) 09/27/23 05:25 RDW 12.2 % (12.1-15.1) 09/27/23 05:25 Plt Count 167 10^3/cmm (157-399) 09/27/23 05:25 MPV 10.5 fL (7.4-10.4) H 09/27/23 05:25 Neut % (Auto) 81.2 % 09/27/23 05:25 Lymph % (Auto) 9.1 % 09/27/23 05:25 Grimes % (Auto) 8.9 % 09/27/23 05:25 Eos % (Auto) 0.1 % 09/27/23 05:25 Baso % (Auto) 0.3 % 09/27/23 05:25 Neut # (Auto) 8.37 10^3/uL (1.8-7.7) H 09/27/23 05:25 Lymph # (Auto) 0.9 10^3/uL (0.8-4.8) 09/27/23 05:25 Grimes # (Auto) 0.9 10^3/uL (0.2-0.9) 09/27/23 05:25 Eos # (Auto) 0.0 10^3/uL (0.0-0.8) 09/27/23 05:25 Baso # (Auto) 0.0 10^3/uL (0.0-0.1) 09/27/23 05:25 Nucleated RBC % (auto) 0 % 09/27/23 05:25 Nucleated RBCs # 0.0 /100WBC 09/27/23 05:25 Sodium 138 mmol/L (136-145) 09/27/23 05:25 Potassium 3.9 mmol/L (3.5-5.1) 09/27/23 05:25 Chloride 103 mmol/L (98-107) 09/27/23 05:25 Carbon Dioxide 26 mmol/L (22-29) 09/27/23 05:25 Anion Gap 12.9 (5-19) 09/27/23 05:25 BUN 15 mg/dL (8-23) 09/27/23 05:25 Creatinine 0.9 mg/dL (0.7-1.2) 09/27/23 05:25 GFR Calculation 83.9 mL/min (90-130) L 09/27/23 05:25 Glucose 127 mg/dL (65-115) H 09/27/23 05:25 Calculated Osmolality 288 mOsm/kg (285-295) 09/27/23 05:25 Calcium 8.7 mg/dL (8.5-10.5) 09/27/23 05:25 Blood Type O Positive 09/26/23 12:30 Rho(D) Type Rh positive 09/26/23 12:30 Antibody Screen Negative 09/26/23 12:30 Vitals Last Vital Signs Temp 97.9 F 09/27/23 08:47 Pulse 63 09/27/23 11:29 Resp 17 09/27/23 11:37 BP 148/72 09/27/23 11:37 Pulse Ox 93 09/27/23 11:29 O2 Del Method Room Air 09/27/23 11:29 O2 Flow Rate 10 09/26/23 16:54 Discharge Plan Discharge Patient Disposition: Home Health Service Condition: Stable Prescriptions: New Eliquis 2.5 mg tablet 2.5 mg PO BID 35 Days Qty: 70 0RF Continued albuterol sulfate 90 mcg/actuation HFA aerosol inhaler 2 inh inhalation Q6H PRN (Reason: bronchospasm) Qty: 8.5 6RF hydrochlorothiazide 25 mg tablet 25 mg PO DAILY Qty: 90 3RF budesonide-formoterol [Symbicort] 80-4.5 mcg/actuation HFA aerosol inhaler See Rx Instructions .ROUTE .COMPLEX Qty: 10.2 6RF Dose Instruction: INHALE TWO PUFFS TWICE DAILY Rx Instructions: INHALE TWO PUFFS TWICE DAILY alprazolam 0.25 mg tablet 0.25 mg PO DAILY PRN (Reason: anxiety) Qty: 20 0RF Discontinued meloxicam 15 mg tablet 15 mg PO DAILY Qty: 90 3RF No Action (DME) Aerochamber MV Spacer See Rx Instructions .Route Qty: 10 0RF Rx Instructions: As directed methocarbamol 750 mg tablet 750 mg PO Q8H 10 Days Qty: 30 0RF amoxicillin 500 mg capsule 500 mg PO ONCE Qty: 24 0RF Rx Instructions: take 4 tabs by mouth 1 hour prior to dental procedure oxycodone 5 mg tablet 10 mg PO Q4H PRN (Reason: pain) 7 Days Qty: 84 0RF Rx Instructions: 1 tab moderate pain 2 tabs severe pain methocarbamol 750 mg tablet 750 mg PO Q8H PRN (Reason: muscle spasm) 7 Days Qty: 21 0RF losartan 100 mg tablet 100 mg PO DAILY Qty: 90 3RF Discharge Orders: Discharge Order (Routine); Ordered 09/27/23 Ordered By: Kiko Ovalle Referrals: Kiko Ovalle DO [Physician] - 10/11/23 3:00 pm Discharge Diet: Regular Discharge Activity: Limit activity as instructed Patient Instructions: Methocarbamol (By mouth), Ondansetron (By mouth), Oxycodone, Slow Release (By mouth), Apixaban (By mouth), Acute Wound Care (DC), Precautions after Total Joint Replacement Surgery (DC), Total Hip Replacement (DC), Opioid Safety, Post Anesthesia Care Activity Restrictions/Additional Instructions: Orthopedic discharge instructions: Trung Dressing--Keep dressing on and dry. After 3 days you can remove some of the dressing and shower. disconnect battery pack when showering. Trung dressing will stay on until follow up appt in 2 weeks. The battery pack for the dressing will at 5-7 days. Battery pack can be removed and discarded once batteries . Patient should keep dressings clean dry and intact Weight-bear as tolerated to operative lower extremity posterior hip precautions as instructed by physical therapy Ice as needed for pain and swelling Take pain medication as prescribed Take antinausea medication as needed May take Tylenol 1000 mg 3 times a day, do not take more than 3000 mg in 24 hours. Supplement with Citracal vitamin D for bone health and healing Take Colace as needed for constipation Take blood thinner as prescribed (Eliquis) Follow-up in the orthopedic office in 2 weeks Contact the office for any questions or concerns Discharge Attestations Time Spent in Discharge Care*: less than 30 min Quality Metrics Clinical Quality Measures [ No reported AMI, CVA or VTE this stay] Coding Level of Care Code Acute Code for Chg Fwd Diagnoses Generalized anxiety disorder F41.1 Essential (primary) hypertension I10 Obesity (BMI 30.0-34.9) E66.9 Left hip pain M25.552 Asthma J45.909
--- NOTE | 2023-09-27 12:44 | PC.NURSE ---
attempted to phone x2 regarding dc, no answer
--- NOTE | 2023-09-27 12:50 | PC.NURSE ---
dc pending arrival. No answer to her cell phone at time of this note.
== END 2023-09-27 14:19 | disposition home health service (06) ==
LOC: MEDSURG 17:03
PROVIDERS: Physician Assistant; Admitting Provider Student in an Organized Health Care Education/Training Program; PCP Clinical Nurse Specialist Adult Health; Visit Provider Student in an Organized Health Care Education/Training Program
PROC: 8E0Y0CZ Robotic Assisted Procedure of Lower Extremity, Open Approach (ICD-10-PCS; CPT 27130; principal; 2023-09-26 12:15)
DX: M16.12 Unilateral primary osteoarthritis, left hip (principal); F41.1 Generalized anxiety disorder; I10 Essential (primary) hypertension; E66.01 Morbid (severe) obesity due to excess calories; Z68.31 Body mass index [BMI] 31.0-31.9, adult; J45.909 Unspecified asthma, uncomplicated
CPT/HCPCS: 20985; 27130; 36415; 51702; 73502; 80048; 85025; 86850; 86900; 94640; 97161; 97167; 97530; C1776; G0378; J0131; J0360; J0690; J1170; J1885; J2250; J2405; J2704; J3010; J3370; J7030; J7120; J7613; J7626

== ENCOUNTER → 2023-10-11 15:44 | Outpatient (BNVA) | payer MEDICARE, SELFPAY | PROVIDERS: PCP Clinical Nurse Specialist Adult Health; Visit Provider Physician Assistant | DX: Z96.642 Presence of left artificial hip joint (principal) | CPT/HCPCS: 73502; 99024 ==

== ENCOUNTER → 2023-11-22 15:11 | Outpatient (BNVA) | payer MEDICARE, SELFPAY | PROVIDERS: PCP Clinical Nurse Specialist Adult Health; Visit Provider Student in an Organized Health Care Education/Training Program | DX: Z96.643 Presence of artificial hip joint, bilateral (principal) | CPT/HCPCS: 73502 ==

== ENCOUNTER → 2024-01-31 13:32 | Outpatient (BNVA) | payer MEDICARE, SELFPAY | PROVIDERS: PCP Clinical Nurse Specialist Adult Health; Visit Provider Orthopaedic Surgery | DX: M54.9 Dorsalgia, unspecified (principal) | CPT/HCPCS: 72110; 99204 ==

== ENCOUNTER 2024-02-26 06:30 | Outpatient (RCR) | payer MEDICARE, SELFPAY | END 2024-03-27 23:59 | disposition home or self-care (01) | LOC: SPT 06:30 | PROVIDERS: Visit Provider Orthopaedic Surgery | DX: M54.9 Dorsalgia, unspecified (principal); G89.29 Other chronic pain | CPT/HCPCS: 97110; 97161 ==

== ENCOUNTER → 2024-03-02 10:11 | Outpatient (BNVA) | payer MEDICARE, SELFPAY | PROVIDERS: Visit Provider Student in an Organized Health Care Education/Training Program | DX: M25.552 Pain in left hip; M48.062 Spinal stenosis, lumbar region with neurogenic claudication; R25.2 Cramp and spasm; Z96.642 Presence of left artificial hip joint | CPT/HCPCS: 73502; 99213 ==

== ENCOUNTER 2024-03-12 13:03 | Outpatient (CLI) | payer MEDICARE, SELFPAY | END 2024-03-12 13:04 | disposition home or self-care (01) | LOC: SLEEP 13:05 | PROVIDERS: PCP Clinical Nurse Specialist Adult Health; Visit Provider Clinical Nurse Specialist Adult Health | DX: G47.33 Obstructive sleep apnea (adult) (pediatric) (principal) | CPT/HCPCS: G0399 ==

== ENCOUNTER → 2024-06-28 13:07 | Outpatient (BNVA) | payer MEDICARE, SELFPAY | PROVIDERS: PCP Clinical Nurse Specialist Adult Health; Visit Provider Orthopaedic Surgery | DX: M54.9 Dorsalgia, unspecified (principal); M48.062 Spinal stenosis, lumbar region with neurogenic claudication | CPT/HCPCS: 72110; 99213 ==

== ENCOUNTER 2024-06-29 13:52 | Outpatient (CLI) | payer MEDICARE, SELFPAY ==
--- NOTE | 2024-06-29 13:45 | MR_ITS ---
WS: [id number] MRI LUMBAR SPINE NONCONTRAST TECHNIQUE: Sagittal T1, T2 and STIR imaging. Axial T1 and T2 imaging. CLINICAL INFORMATION: Back Pain COMPARISON: None. FINDINGS: Scanner outage mid scan due to power loss. Patient was relocalized and axials obtained. Mild lumbar curve. No acute compression. Endplate degenerative changes. Hemangioma L2 vertebral body. L1-L2: Mild disc bulging. Slight effacement of the ventral thecal sac. Moderate central canal stenosis. Severe impingement RIGHT subarticular recess. Moderate facet arthropathy. Moderate RIGHT foraminal narrowing. L2-L3: Central disc bulging with severe central canal stenosis. Severe impingement of the subarticular recess. Moderate facet arthropathy. Mild RIGHT greater than LEFT foraminal narrowing. L3-L4: Severe central canal stenosis. Moderate facet arthropathy. Mild RIGHT foraminal narrowing. L4-L5: Disc osteophyte complex with severe central canal stenosis. Severe impingement of the traversing L5 nerve roots in the subarticular recess. Advanced arthropathy. Moderate to severe LEFT foraminal narrowing L5-S1: Mild disc bulging. Mild central canal stenosis. Impingement on the S1 nerve roots. Moderate facet arthropathy. Visualized pelvic bony structures: Normal. Paravertebral soft tissues: Normal. Small disc osteophyte protrusions in the cervical spine at C5-C6 and C6-C7. MR/MR lumbar spine wo con* [id number] IMPRESSION: Some images degraded by motion. 1. Severe central canal stenosis L2-L3 L3-L4 and L4-L5. Moderate central jadyn l stenosis L1-2 with impingement on the RIGHT subarticular recess. 2. Moderate to severe foraminal narrowing worse at RIGHT L1-2, RIGHT L2-3, and LEFT L4-5 worse at LEFT L4-5. 3. Disc bulging L5-S1 impinges the traversing S1 nerve roots. 4. 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
== END 2024-06-29 13:53 | disposition home or self-care (01) ==
LOC: RAD 13:55
PROVIDERS: PCP Clinical Nurse Specialist Adult Health; Visit Provider Orthopaedic Surgery
DX: M48.061 Spinal stenosis, lumbar region without neurogenic claudication (principal); R93.7 Abnormal findings on diagnostic imaging of other parts of musculoskeletal system; M51.379 Other intervertebral disc degeneration, lumbosacral region without mention of lumbar back pain or lower extremity pain; M43.8X6 Other specified deforming dorsopathies, lumbar region; D18.09 Hemangioma of other sites; M51.369 Other intervertebral disc degeneration, lumbar region without mention of lumbar back pain or lower extremity pain; M47.896 Other spondylosis, lumbar region; M48.07 Spinal stenosis, lumbosacral region; M47.897 Other spondylosis, lumbosacral region; M25.78 Osteophyte, vertebrae; M50.322 Other cervical disc degeneration at C5-C6 level; M50.323 Other cervical disc degeneration at C6-C7 level
CPT/HCPCS: 72148

== ENCOUNTER → 2024-07-05 11:07 | Outpatient (BNVA) | payer MEDICARE, SELFPAY | PROVIDERS: PCP Clinical Nurse Specialist Adult Health; Visit Provider Orthopaedic Surgery | DX: M54.9 Dorsalgia, unspecified (principal); M48.062 Spinal stenosis, lumbar region with neurogenic claudication | CPT/HCPCS: 99214 ==

== ENCOUNTER → 2024-10-25 09:21 | Outpatient (BNVA) | payer MEDICARE, SELFPAY | PROVIDERS: PCP Family Medicine; Visit Provider Clinical Nurse Specialist Adult Health | DX: M17.12 Unilateral primary osteoarthritis, left knee (principal) | CPT/HCPCS: 73562 ==

== ENCOUNTER → 2024-11-05 08:58 | Outpatient (BNVA) | payer MEDICARE, SELFPAY | PROVIDERS: PCP Family Medicine; Visit Provider Podiatrist Foot & Ankle Surgery | DX: M79.672 Pain in left foot (principal); M19.072 Primary osteoarthritis, left ankle and foot | CPT/HCPCS: 73630; 99203 ==

== ENCOUNTER → 2024-12-03 08:47 | Outpatient (BNVA) | payer MEDICARE, SELFPAY | PROVIDERS: PCP Family Medicine; Visit Provider Podiatrist Foot & Ankle Surgery | DX: M19.072 Primary osteoarthritis, left ankle and foot (principal) | CPT/HCPCS: 99213 ==

== ENCOUNTER → 2025-01-16 13:20 | Outpatient (BNVA) | payer MEDICARE, SELFPAY | PROVIDERS: PCP Family Medicine; Visit Provider Podiatrist Foot & Ankle Surgery | DX: S99.922A Unspecified injury of left foot, initial encounter (principal); S93.105A Unspecified dislocation of left toe(s), initial encounter; X58.XXXA Exposure to other specified factors, initial encounter | CPT/HCPCS: 73630; 99214 ==